=== PATIENT | female | born 1965 | race Hispanic/Latino ===

== ENCOUNTER 2019-01-28 17:33 | Inpatient (IN) | payer OTHER | END 2019-01-29 09:15 | disposition home or self-care (01) | LOC: EDH 17:33 → 3CH 17:34 ==

== ENCOUNTER → 2020-07-10 | Outpatient (CLI) | payer OTHER ==
[~2020-07-10] MED LIST: LATA1OIL MC; LOSA25TA41 PO; VIT C PO; VIT D3 PO
== END | disposition home or self-care (01) ==
LOC: OIH 09:31
PROVIDERS: ATTEND Family Medicine
DX: S16.1XXA Strain of muscle, fascia and tendon at neck level, initial encounter (principal); M47.22 Other spondylosis with radiculopathy, cervical region; X58.XXXA Exposure to other specified factors, initial encounter; Y92.89 Other specified places as the place of occurrence of the external cause; Y93.89 Activity, other specified; Y99.8 Other external cause status
CPT/HCPCS: 72040